=== PATIENT | female | born 1975 | race African-American/Black ===

== ENCOUNTER 2019-10-02 11:06 | Emergency (ER) | payer SELFPAY ==
[~2019-10-02] VITALS: Ht 170.2 cm; Wt 75.0 kg
[2019-10-02] MEDS ORDERED: SODIUM CHLORIDE 0.9% 1,000 ML IV ONE (11:50)
[2019-10-02] MEDS ORDERED: LORAZEPAM 2MG/ML CPJ IV ONE (12:00)
[2019-10-02 12:46] LABS: BASOPHILS % 0.5 % (0.0-2.0); EOSINOPHILS % 0.1 % (0.0-5.0); HEMATOCRIT. 45.3 % (36.0-48.0); HEMOGLOBIN. 15.4 g/dL (12.0-16.0); LYMPHOCYTES % 11.8 % (20.0-50.0); MEAN CORPUSCULAR HEMOGLOBIN 30.7 pg (28.0-32.0); MEAN CORPUSCULAR VOLUME 90.5 fL (81.0-99.0); MONOCYTES % 5.4 % (2.0-8.0); NEUTROPHILS % 82.2 % (40.0-76.0); RED BLOOD CELL COUNT 5.01 mill/uL (4.2-5.4); RED CELL DISTRIBUTION WIDTH 13.5 % (11.6-14.6)
[2019-10-02 12:49] LABS: CHLORIDE 108 mEq/L (98-107)
[2019-10-02 12:53] LABS: ETHANOL BLOOD < 10 mg/dL
[2019-10-02 13:08] LABS: PLATELET 163 x1000/uL (130-400)
[2019-10-02 13:14] LABS: CLARITY URINE CLEAR (CLEAR); COLOR URINE YELLOW (YELLOW); KETONES URINE 2+ (NEGATIVE); LEUKOCYTE ESTERASE URINE NEGATIVE (NEGATIVE); NITRITE URINE NEGATIVE (NEGATIVE); OCCULT BLOOD URINE NEGATIVE (NEGATIVE); PH URINE 8.5 (4.5-8.0); PROTEIN URINE NEGATIVE (NEGATIVE); SPECIFIC GRAVITY URINE 1.012 (1.005-1.030)
[2019-10-02 13:19] LABS: HCG SCREEN NEGATIVE
[2019-10-02 13:35] LABS: *BARBITURATES SCREEN URINE NEGATIVE (NEGATIVE)
[2019-10-02 13:36] LABS: *BENZODIAZEPINES SCREEN URINE NEGATIVE (NEGATIVE); *COCAINE SCREEN URINE NEGATIVE (NEGATIVE); METHADONE URINE SCREEN NEGATIVE (NEGATIVE); OPIATES URINE SCREEN NEGATIVE (NEGATIVE); PHENCYCLIDINE URINE SCREEN NEGATIVE (NEGATIVE)
[2019-10-02 13:37] LABS: *AMPHETAMINES SCREEN URINE PRESUMTIVE POSITIVE (NEGATIVE); CANNABINOID URINE SCREEN PRESUMTIVE POSITIVE (NEGATIVE)
[2019-10-02] MEDS ORDERED: POTASSIUM CHLORIDE 20MEQ TABLET SR PO NR (15:00)
[2019-10-02 15:39] VITALS: BP 105/78
== END 2019-10-02 15:41 | disposition home or self-care (01) ==
LOC: ER 11:06
DX: F15.129 Other stimulant abuse with intoxication, unspecified (principal); E87.6 Hypokalemia; M32.9 Systemic lupus erythematosus, unspecified; F17.210 Nicotine dependence, cigarettes, uncomplicated
CPT/HCPCS: 36415; 71045; 80053; 80305; 80320; 81003; 81025; 84703; 85025; 96374; 99284; J2060; J7030; G0480